=== PATIENT | female | born 1940 | race Caucasian/White ===

== ENCOUNTER 2018-05-19 15:50 | Inpatient (IN) | payer MEDICAID ==
[2018-05-19 16:33] LABS: ADD MAN DIFF? NO
[2018-05-19 16:39] LABS: BASOPHILS % 0.1 % (0.0-2.0); HEMATOCRIT 27.6 % (37.0-47.0); HEMOGLOBIN 9.6 g/dl (12.0-16.0); LYMPHOCYTES # 0.7 10^3/ul (0.8-2.9); MEAN CORPUSCULAR HEMOGLOBIN 28.9 pg (29.0-33.0); MEAN CORPUSCULAR HGB CONC 34.8 g/dl (32.0-37.0); MEAN CORPUSCULAR VOLUME 83.1 fl (82.0-101.0); MEAN PLATELET VOLUME 11.5 fl (7.4-10.4); MONOCYTES % 6.5 % (0.0-11.0); NEUTROPHIL # 12.8 10^3/ul (1.6-7.5); NEUTROPHILS % 87.9 % (39.0-77.0); PLATELET COUNT 237 10^3/UL (140-415); RED BLOOD COUNT 3.32 10^6/ul (4.20-5.40); RED CELL DISTRIBUTION WIDTH 13.1 % (11.5-14.5)
[2018-05-19 16:39] LABS: WHITE BLOOD COUNT 14.6 10^3/ul (4.8-10.8)
[2018-05-19 16:56] LABS: LACTIC ACID 1.6 mmol/L (0.5-2.0)
[2018-05-19 16:57] LABS: ALANINE AMINOTRANSFERASE 22 IU/L (13-69); ALBUMIN 3.8 g/dl (3.3-4.9); ALKALINE PHOSPHATASE 121 IU/L (42-121); ANION GAP 20 (8-16); ASPARTATE AMINO TRANSFERASE 23 IU/L (15-46); BILIRUBIN,INDIRECT 0.3 mg/dl (0-1.1); BILIRUBIN,TOTAL 0.3 mg/dl (0.2-1.3); BLOOD UREA NITROGEN 54 mg/dl (7-20); CALCIUM 8.5 mg/dl (8.4-10.2); CARBON DIOXIDE 19 mmol/L (21-31); CHLORIDE 95 mmol/L (97-110); CREATININE 2.02 mg/dl (0.44-1.00); GLUCOSE 363 mg/dl (70-220); SODIUM 129 mmol/L (135-144); TOTAL PROTEIN 7.6 g/dl (6.1-8.1)
[2018-05-19 16:58] LABS: LIPASE 52 U/L (23-300)
[2018-05-19] MEDS: SODIUM CHLORIDE 0.9% 1L BAG IV* (17:00)
[2018-05-19] MEDS: CEFEPIME 2GM/50 ML (PMX) 50 ML IVPB (17:05)
[2018-05-19] MEDS: ONDANSETRON 4 MG INJ IV (17:05)
[2018-05-19] MEDS: ACETAMINOPHEN 325 MG TAB PO (17:07)
[2018-05-19 17:12] LABS: ADD UMIC YES; UR ASCORBIC ACID NEGATIVE (NEGATIVE); UR BACTERIA MODERATE /HPF (NONE SEEN); UR BILIRUBIN (Dip) NEGATIVE (NEGATIVE); UR BLOOD (Dip) 3+ mg/dL (NEGATIVE); UR CLARITY CLOUDY (CLEAR); UR COLOR YELLOW (YELLOW); UR GLUCOSE (Dip) 2+ mg/dL (NEGATIVE); UR KETONES (Dip) NEGATIVE (NEGATIVE); UR LEUKOCYTE ESTERASE (Dip) 3+ Leu/ul (NEGATIVE); UR MUCUS FEW /HPF (NONE SEEN); UR NITRITE (Dip) NEGATIVE (NEGATIVE); UR NONSQUAMOUS EPITHELIAL CELL 1 /HPF (NONE SEEN); UR RBC 171 /HPF (0-5); UR SPECIFIC GRAVITY (Dip) 1.012 (1.003-1.030); UR SQUAMOUS EPITHELIAL CELL FEW /HPF (FEW); UR TOTAL PROTEIN (Dip) 3+ mg/dl (NEGATIVE); UR UROBILINOGEN (Dip) NEGATIVE (NEGATIVE); UR WBC > 182 /HPF (0-5)
[2018-05-19 17:13] LABS: TROPONIN-I 0.025 ng/ml (0.000-0.120)
[2018-05-19 17:14] LABS: INR 1.09; PROTIME 14.2 Sec (11.9-14.9); PT RATIO 1.1
[2018-05-19] MEDS: INSULIN ASPART [NOVOLOG] 3 ML PEN SC ×5 (18:00→23:47)
[2018-05-19] MEDS ORDERED: GLUCOSE GEL 15 GRAM TUBE PO ×2 (18:30)
[2018-05-19] MEDS ORDERED: NACL 0.9% 3 ML SYG IV (18:30)
[2018-05-19] MEDS ORDERED: GLUCOSE GEL 15 GRAM TUBE BUCCAL (18:30)
[2018-05-19] MEDS ORDERED: DEXTROSE 50% 50 ML SYRINGE IV (18:30)
[2018-05-19] MEDS ORDERED: GLUCAGON 1 MG INJ IM (18:30)
[2018-05-19] MEDS: HYDROCODONE/APAP (5/325) TAB PO (18:35)
[2018-05-19] MEDS: HEPARIN 5,000 UNIT/0.5 ML VIAL SC (22:35)
[2018-05-19] MEDS: INSULIN GLARGINE [LANTus] (100 UNITS/ML) SYG SC (22:36)
[2018-05-19] MEDS: SOD CHLORIDE 0.9% 1,000 ML IV (22:38)
[2018-05-19] MEDS: MEROPENEM 1 GM/50ML(PMX) 50 ML IVPB (23:38)
[2018-05-20] MEDS: ACCU-CHEK XX (02:00)
[2018-05-20] MEDS: INSULIN ASPART [NOVOLOG] 3 ML PEN SC ×8 (03:19→21:13)
[2018-05-20 05:48] LABS: ADD MAN DIFF? NO
[2018-05-20 05:49] LABS: WHITE BLOOD COUNT 18.8 10^3/ul (4.8-10.8)
[2018-05-20 05:49] LABS: ABNORMAL IP MESSAGE 1; BASOPHILS % 0.2 % (0.0-2.0); EOSINOPHILS % 0.2 % (0.0-7.0); HEMATOCRIT 24.7 % (37.0-47.0); HEMOGLOBIN 8.7 g/dl (12.0-16.0); LYMPHOCYTES # 2.1 10^3/ul (0.8-2.9); LYMPHOCYTES % 10.9 % (15.0-51.0); MEAN CORPUSCULAR HEMOGLOBIN 29.2 pg (29.0-33.0); MEAN CORPUSCULAR HGB CONC 35.2 g/dl (32.0-37.0); MEAN CORPUSCULAR VOLUME 82.9 fl (82.0-101.0); MEAN PLATELET VOLUME 11.6 fl (7.4-10.4); MONOCYTE # 1.6 10^3/ul (0.3-0.9); MONOCYTES % 8.3 % (0.0-11.0); NEUTROPHIL # 14.9 10^3/ul (1.6-7.5); NEUTROPHILS % 79.3 % (39.0-77.0); PLATELET COUNT 219 10^3/UL (140-415); RED BLOOD COUNT 2.98 10^6/ul (4.20-5.40)
[2018-05-20 06:04] LABS: HEMOGLOBIN A1C 9.2 % (0-5.9)
[2018-05-20 06:14] LABS: IRON 27 ug/dl (35-150)
[2018-05-20 06:16] LABS: ALANINE AMINOTRANSFERASE 19 IU/L (13-69); ALBUMIN 3.2 g/dl (3.3-4.9); ALBUMIN/GLOBULIN RATIO 0.91; ALKALINE PHOSPHATASE 92 IU/L (42-121); ANION GAP 13 (8-16); ASPARTATE AMINO TRANSFERASE 21 IU/L (15-46); BILIRUBIN,INDIRECT 0.1 mg/dl (0-1.1); BILIRUBIN,TOTAL 0.1 mg/dl (0.2-1.3); BLOOD UREA NITROGEN 45 mg/dl (7-20); CALCIUM 8.3 mg/dl (8.4-10.2); CARBON DIOXIDE 19 mmol/L (21-31); CHLORIDE 105 mmol/L (97-110); CREATININE 1.82 mg/dl (0.44-1.00); GLUCOSE 160 mg/dl (70-220); POTASSIUM 4.2 mmol/L (3.5-5.1); SODIUM 133 mmol/L (135-144); TOTAL PROTEIN 6.7 g/dl (6.1-8.1)
[2018-05-20 06:18] LABS: POSITIVE DIFF @See below
[2018-05-20 06:23] LABS: % IRON SATURATION 12 % SAT (22-52); TOTAL IRON BINDING CAPACITY 225 ug/dl (241-421)
[2018-05-20] MEDS: SOD CHLORIDE 0.9% 1,000 ML IV ×2 (07:31→15:21)
[2018-05-20] MEDS: MEROPENEM 1 GM/50ML(PMX) 50 ML IVPB ×2 (08:44→21:00)
[2018-05-20] MEDS: HEPARIN 5,000 UNIT/0.5 ML VIAL SC ×2 (08:44→21:13)
[2018-05-20] MEDS: ACETAMINOPHEN 325 MG TAB PO (15:19)
[2018-05-20] MEDS: INSULIN GLARGINE [LANTus] (100 UNITS/ML) SYG SC (21:11)
[2018-05-21] MEDS: ACCU-CHEK XX (02:49)
[2018-05-21] MEDS: SOD CHLORIDE 0.9% 1,000 ML IV (06:08)
[2018-05-21 06:12] LABS: ADD MAN DIFF? NO
[2018-05-21 06:18] LABS: ABNORMAL IP MESSAGE 1; BASOPHILS % 0.1 % (0.0-2.0); EOSINOPHILS # 0.1 10^3/ul (0.0-0.5); EOSINOPHILS % 0.9 % (0.0-7.0); HEMATOCRIT 24.4 % (37.0-47.0); HEMOGLOBIN 8.4 g/dl (12.0-16.0); LYMPHOCYTES # 2.3 10^3/ul (0.8-2.9); LYMPHOCYTES % 16.3 % (15.0-51.0); MEAN CORPUSCULAR HEMOGLOBIN 28.7 pg (29.0-33.0); MEAN CORPUSCULAR HGB CONC 34.4 g/dl (32.0-37.0); MEAN CORPUSCULAR VOLUME 83.3 fl (82.0-101.0); MEAN PLATELET VOLUME 11.4 fl (7.4-10.4); MONOCYTES % 13.9 % (0.0-11.0); NEUTROPHIL # 9.5 10^3/ul (1.6-7.5); NEUTROPHILS % 68.4 % (39.0-77.0); PLATELET COUNT 235 10^3/UL (140-415); RED BLOOD COUNT 2.93 10^6/ul (4.20-5.40); RED CELL DISTRIBUTION WIDTH 13.2 % (11.5-14.5)
[2018-05-21 06:34] LABS: POSITIVE DIFF @See below
[2018-05-21 07:00] LABS: ALANINE AMINOTRANSFERASE 22 IU/L (13-69); ALBUMIN 2.9 g/dl (3.3-4.9); ALBUMIN/GLOBULIN RATIO 0.87; ALKALINE PHOSPHATASE 85 IU/L (42-121); ANION GAP 13 (8-16); ASPARTATE AMINO TRANSFERASE 24 IU/L (15-46); BILIRUBIN,INDIRECT 0.1 mg/dl (0-1.1); BILIRUBIN,TOTAL 0.1 mg/dl (0.2-1.3); BLOOD UREA NITROGEN 36 mg/dl (7-20); CALCIUM 7.7 mg/dl (8.4-10.2); CARBON DIOXIDE 17 mmol/L (21-31); CHLORIDE 108 mmol/L (97-110); CREATININE 1.51 mg/dl (0.44-1.00); GLUCOSE 118 mg/dl (70-220); POTASSIUM 3.9 mmol/L (3.5-5.1); SODIUM 134 mmol/L (135-144); TOTAL PROTEIN 6.2 g/dl (6.1-8.1)
[2018-05-21] MEDS: INSULIN ASPART [NOVOLOG] 3 ML PEN SC ×8 (07:59→21:00)
[2018-05-21] MEDS: MEROPENEM 1 GM/50ML(PMX) 50 ML IVPB (08:32)
[2018-05-21] MEDS: HEPARIN 5,000 UNIT/0.5 ML VIAL SC ×2 (08:32→20:34)
[2018-05-21] MEDS: ERTAPENEM SODIUM 1 GM in SOD CHLORIDE 0.9% 100 ML IVPB (15:11)
[2018-05-21] MEDS: INSULIN GLARGINE [LANTus] (100 UNITS/ML) SYG SC (21:19)
[2018-05-22] MEDS: SOD CHLORIDE 0.9% 1,000 ML IV ×3 (01:29→22:41)
[2018-05-22] MEDS: ACCU-CHEK XX (02:00)
[2018-05-22 05:39] LABS: ADD MAN DIFF? NO
[2018-05-22 05:42] LABS: BASOPHILS % 0.4 % (0.0-2.0); EOSINOPHILS # 0.1 10^3/ul (0.0-0.5); HEMATOCRIT 25.8 % (37.0-47.0); HEMOGLOBIN 8.8 g/dl (12.0-16.0); LYMPHOCYTES # 1.9 10^3/ul (0.8-2.9); LYMPHOCYTES % 17.4 % (15.0-51.0); MEAN CORPUSCULAR HEMOGLOBIN 28.3 pg (29.0-33.0); MEAN CORPUSCULAR HGB CONC 34.1 g/dl (32.0-37.0); MEAN PLATELET VOLUME 11.4 fl (7.4-10.4); MONOCYTE # 1.4 10^3/ul (0.3-0.9); MONOCYTES % 13.1 % (0.0-11.0); NEUTROPHIL # 7.2 10^3/ul (1.6-7.5); NEUTROPHILS % 67.5 % (39.0-77.0); PLATELET COUNT 248 10^3/UL (140-415); RED BLOOD COUNT 3.11 10^6/ul (4.20-5.40); RED CELL DISTRIBUTION WIDTH 13.2 % (11.5-14.5)
[2018-05-22 05:42] LABS: WHITE BLOOD COUNT 10.7 10^3/ul (4.8-10.8)
[2018-05-22 06:26] LABS: ANION GAP 12 (8-16); BLOOD UREA NITROGEN 28 mg/dl (7-20); CALCIUM 8.2 mg/dl (8.4-10.2); CARBON DIOXIDE 20 mmol/L (21-31); CHLORIDE 106 mmol/L (97-110); CREATININE 1.27 mg/dl (0.44-1.00); GLUCOSE 87 mg/dl (70-220); MAGNESIUM 1.5 mg/dl (1.7-2.5); PHOSPHORUS 2.9 mg/dl (2.5-4.9); POTASSIUM 3.6 mmol/L (3.5-5.1); SODIUM 134 mmol/L (135-144)
[2018-05-22] MEDS: INSULIN ASPART [NOVOLOG] 3 ML PEN SC ×7 (08:00→21:00)
[2018-05-22] MEDS: HEPARIN 5,000 UNIT/0.5 ML VIAL SC ×2 (08:40→20:45)
[2018-05-22] MEDS: MAGNESIUM SULFATE 3 GM in DEXTROSE 5% 100 ML IVPB (12:51)
[2018-05-22] MEDS: ERTAPENEM SODIUM 1 GM in SOD CHLORIDE 0.9% 100 ML IVPB (18:46)
[2018-05-22] MEDS: INSULIN GLARGINE [LANTus] (100 UNITS/ML) SYG SC (20:46)
[2018-05-23] MEDS: ACCU-CHEK XX (02:00)
[2018-05-23] MEDS: ACETAMINOPHEN 325 MG TAB PO (02:36)
[2018-05-23] MEDS: METOPROLOL 25 MG TAB PO ×3 (02:39→20:43)
[2018-05-23 06:15] LABS: ADD MAN DIFF? NO
[2018-05-23 06:30] LABS: WHITE BLOOD COUNT 8.4 10^3/ul (4.8-10.8)
[2018-05-23 06:30] LABS: BASOPHILS % 0.4 % (0.0-2.0); EOSINOPHILS # 0.1 10^3/ul (0.0-0.5); EOSINOPHILS % 1.5 % (0.0-7.0); HEMATOCRIT 25.3 % (37.0-47.0); HEMOGLOBIN 8.7 g/dl (12.0-16.0); LYMPHOCYTES # 2.1 10^3/ul (0.8-2.9); LYMPHOCYTES % 25.5 % (15.0-51.0); MEAN CORPUSCULAR HEMOGLOBIN 28.4 pg (29.0-33.0); MEAN CORPUSCULAR HGB CONC 34.4 g/dl (32.0-37.0); MEAN CORPUSCULAR VOLUME 82.7 fl (82.0-101.0); MONOCYTE # 1.3 10^3/ul (0.3-0.9); NEUTROPHIL # 4.7 10^3/ul (1.6-7.5); NEUTROPHILS % 56.1 % (39.0-77.0); PLATELET COUNT 281 10^3/UL (140-415); RED BLOOD COUNT 3.06 10^6/ul (4.20-5.40)
[2018-05-23 07:17] LABS: ANION GAP 12 (8-16); BLOOD UREA NITROGEN 28 mg/dl (7-20); CALCIUM 8.4 mg/dl (8.4-10.2); CARBON DIOXIDE 22 mmol/L (21-31); CHLORIDE 107 mmol/L (97-110); CREATININE 1.51 mg/dl (0.44-1.00); GLUCOSE 93 mg/dl (70-220); MAGNESIUM 2.5 mg/dl (1.7-2.5); POTASSIUM 3.9 mmol/L (3.5-5.1); SODIUM 137 mmol/L (135-144)
[2018-05-23] MEDS: INSULIN ASPART [NOVOLOG] 3 ML PEN SC ×7 (08:00→20:48)
[2018-05-23] MEDS: HEPARIN 5,000 UNIT/0.5 ML VIAL SC ×2 (08:17→20:45)
[2018-05-23] MEDS: SOD CHLORIDE 0.9% 1,000 ML IV ×2 (12:15→14:36)
[2018-05-23] MEDS: ERTAPENEM SODIUM 1 GM in SOD CHLORIDE 0.9% 100 ML IVPB (14:03)
[2018-05-23] MEDS: INSULIN GLARGINE [LANTus] (100 UNITS/ML) SYG SC (20:47)
[2018-05-24] MEDS: ACCU-CHEK XX (02:00)
[2018-05-24] MEDS: SOD CHLORIDE 0.9% 1,000 ML IV ×2 (03:19→17:39)
[2018-05-24 06:29] LABS: HEMATOCRIT 24.7 % (37.0-47.0); HEMOGLOBIN 8.5 g/dl (12.0-16.0); MEAN CORPUSCULAR HEMOGLOBIN 28.8 pg (29.0-33.0); MEAN CORPUSCULAR HGB CONC 34.4 g/dl (32.0-37.0); MEAN CORPUSCULAR VOLUME 83.7 fl (82.0-101.0); PLATELET COUNT 322 10^3/UL (140-415); RED BLOOD COUNT 2.95 10^6/ul (4.20-5.40); RED CELL DISTRIBUTION WIDTH 13.2 % (11.5-14.5)
[2018-05-24 06:29] LABS: WHITE BLOOD COUNT 8.4 10^3/ul (4.8-10.8)
[2018-05-24 06:43] LABS: ADD MAN DIFF? YES; POSITIVE DIFF @See below
[2018-05-24 06:54] LABS: ANION GAP 12 (8-16); BLOOD UREA NITROGEN 23 mg/dl (7-20); CALCIUM 8.1 mg/dl (8.4-10.2); CARBON DIOXIDE 21 mmol/L (21-31); CHLORIDE 109 mmol/L (97-110); CREATININE 1.19 mg/dl (0.44-1.00); GLUCOSE 84 mg/dl (70-220); POTASSIUM 3.7 mmol/L (3.5-5.1); SODIUM 138 mmol/L (135-144)
[2018-05-24 07:09] LABS: ANISOCYTOSIS 1+ (0-0); BASOPHIL #M 0.1 10^3/ul (0.0-0.0); BASOPHILS % (M) 2 % (0-2); EOSINOPHILS % (M) 3 % (0-7); LYMPHOCYTES #M 3.1 10^3/ul (0.8-2.9); LYMPHOCYTES % (M) 37 % (15-51); MONOCYTES % (M) 13 % (0-11); PLATELET ESTIMATE NORMAL; POLYCHROMASIA 1+ (0-0); REACTIVE LYMPHOCYTES #M 0.1 10^3/ul (0.0-0.0); REACTIVE LYMPHOCYTES% (M) 2 % (0-0); SEGMENTED NEUTROPHILS (M) % 43 % (39-77); SMUDGE%M 9 % (0-0)
[2018-05-24] MEDS: INSULIN ASPART [NOVOLOG] 3 ML PEN SC ×7 (08:00→21:00)
[2018-05-24] MEDS: HEPARIN 5,000 UNIT/0.5 ML VIAL SC ×2 (08:38→20:53)
[2018-05-24] MEDS: METOPROLOL 25 MG TAB PO ×2 (08:39→20:50)
[2018-05-24] MEDS: ERTAPENEM SODIUM 1 GM in SOD CHLORIDE 0.9% 100 ML IVPB (14:34)
[2018-05-24] MEDS: INSULIN GLARGINE [LANTus] (100 UNITS/ML) SYG SC (20:54)
[2018-05-25] MEDS: ACCU-CHEK XX (02:00)
[2018-05-25] MEDS: SOD CHLORIDE 0.9% 1,000 ML IV ×2 (06:08→20:44)
[2018-05-25] MEDS: INSULIN ASPART [NOVOLOG] 3 ML PEN SC ×7 (08:00→20:38)
[2018-05-25] MEDS: METOPROLOL 25 MG TAB PO ×2 (08:09→20:30)
[2018-05-25] MEDS: HEPARIN 5,000 UNIT/0.5 ML VIAL SC ×2 (08:09→20:38)
[2018-05-25] MEDS: ERTAPENEM SODIUM 1 GM in SOD CHLORIDE 0.9% 100 ML IVPB (16:31)
[2018-05-25] MEDS: INSULIN GLARGINE [LANTus] (100 UNITS/ML) SYG SC (20:39)
[2018-05-26] MEDS: ACCU-CHEK XX (02:00)
[2018-05-26] MEDS: INSULIN ASPART [NOVOLOG] 3 ML PEN SC ×8 (07:54→20:31)
[2018-05-26] MEDS: METOPROLOL 25 MG TAB PO ×2 (08:19→20:30)
[2018-05-26] MEDS: HEPARIN 5,000 UNIT/0.5 ML VIAL SC ×2 (08:21→21:36)
[2018-05-26] MEDS: SOD CHLORIDE 0.9% 1,000 ML IV ×2 (10:14→21:37)
[2018-05-26] MEDS: DOCUSATE SODIUM 100 MG CAP PO ×2 (12:20→20:30)
[2018-05-26] MEDS: SENNA TAB PO ×2 (12:20→20:31)
[2018-05-26] MEDS: ERTAPENEM SODIUM 1 GM in SOD CHLORIDE 0.9% 100 ML IVPB (13:47)
[2018-05-26] MEDS: LISINOPRIL 10 MG TAB PO (14:32)
[2018-05-26] MEDS: hydrALAzine 20 MG INJ IV (14:33)
[2018-05-26 18:14] LABS: ADD MAN DIFF? NO
[2018-05-26 18:16] LABS: BASOPHILS % 0.4 % (0.0-2.0); EOSINOPHILS # 0.1 10^3/ul (0.0-0.5); EOSINOPHILS % 0.8 % (0.0-7.0); HEMATOCRIT 25.1 % (37.0-47.0); HEMOGLOBIN 8.5 g/dl (12.0-16.0); LYMPHOCYTES # 1.8 10^3/ul (0.8-2.9); LYMPHOCYTES % 22.3 % (15.0-51.0); MEAN CORPUSCULAR HEMOGLOBIN 28.6 pg (29.0-33.0); MEAN CORPUSCULAR HGB CONC 33.9 g/dl (32.0-37.0); MEAN CORPUSCULAR VOLUME 84.5 fl (82.0-101.0); MEAN PLATELET VOLUME 10.4 fl (7.4-10.4); MONOCYTE # 0.6 10^3/ul (0.3-0.9); MONOCYTES % 7.1 % (0.0-11.0); NEUTROPHIL # 5.4 10^3/ul (1.6-7.5); NEUTROPHILS % 68.4 % (39.0-77.0); PLATELET COUNT 442 10^3/UL (140-415); RED BLOOD COUNT 2.97 10^6/ul (4.20-5.40); RED CELL DISTRIBUTION WIDTH 13.3 % (11.5-14.5)
[2018-05-26 18:16] LABS: WHITE BLOOD COUNT 7.8 10^3/ul (4.8-10.8)
[2018-05-26 18:24] LABS: HEMOGLOBIN A1C 9.4 % (0-5.9)
[2018-05-26 18:32] LABS: INR 0.93; PROTIME 12.5 Sec (11.9-14.9)
[2018-05-26 18:33] LABS: PARTIAL THROMBOPLASTIN TIME 32.6 Sec (25.0-35.0)
[2018-05-26 18:35] LABS: ANION GAP 18 (8-16); BLOOD UREA NITROGEN 19 mg/dl (7-20); CALCIUM 8.2 mg/dl (8.4-10.2); CARBON DIOXIDE 20 mmol/L (21-31); CHLORIDE 108 mmol/L (97-110); CHOL/HDL RATIO 7.6 RATIO; CHOLESTEROL 184 mg/dl (100-200); CREATINE KINASE 66 IU/L (23-200); CREATININE 1.06 mg/dl (0.44-1.00); GLUCOSE 154 mg/dl (70-220); HDL CHOLESTEROL 24 mg/dl (33-92); LDL CHOLESTEROL,CALCULATED 103 mg/dl; POTASSIUM 3.5 mmol/L (3.5-5.1); SODIUM 142 mmol/L (135-144); TRIGLYCERIDES 285 mg/dl (0-149)
[2018-05-26 18:38] LABS: LACTIC ACID 3.3 mmol/L (0.5-2.0)
[2018-05-26 18:46] LABS: CK-MB 1.29 ng/ml (0.0-2.4); TROPONIN-I < 0.012 ng/ml (0.000-0.120)
[2018-05-26] MEDS: ASPIRIN 300 MG SUPP PR (18:52)
[2018-05-26] MEDS: INSULIN GLARGINE [LANTus] (100 UNITS/ML) SYG SC (20:28)
[2018-05-27] MEDS: ACCU-CHEK XX (02:00)
[2018-05-27 05:45] LABS: ADD MAN DIFF? NO
[2018-05-27 05:58] LABS: BASOPHIL # 0.1 10^3/ul (0.0-0.1); BASOPHILS % 0.6 % (0.0-2.0); EOSINOPHILS # 0.2 10^3/ul (0.0-0.5); EOSINOPHILS % 1.9 % (0.0-7.0); HEMATOCRIT 23.6 % (37.0-47.0); LYMPHOCYTES % 33.5 % (15.0-51.0); MEAN CORPUSCULAR HEMOGLOBIN 28.7 pg (29.0-33.0); MEAN CORPUSCULAR HGB CONC 33.9 g/dl (32.0-37.0); MEAN CORPUSCULAR VOLUME 84.6 fl (82.0-101.0); MEAN PLATELET VOLUME 10.6 fl (7.4-10.4); MONOCYTE # 0.8 10^3/ul (0.3-0.9); MONOCYTES % 9.2 % (0.0-11.0); NEUTROPHIL # 4.8 10^3/ul (1.6-7.5); NEUTROPHILS % 54.3 % (39.0-77.0); PLATELET COUNT 442 10^3/UL (140-415); RED BLOOD COUNT 2.79 10^6/ul (4.20-5.40); RED CELL DISTRIBUTION WIDTH 13.3 % (11.5-14.5)
[2018-05-27 05:58] LABS: WHITE BLOOD COUNT 8.8 10^3/ul (4.8-10.8)
[2018-05-27 06:15] LABS: LACTIC ACID 0.7 mmol/L (0.5-2.0)
[2018-05-27 06:17] LABS: ALANINE AMINOTRANSFERASE 26 IU/L (13-69); ALBUMIN 2.7 g/dl (3.3-4.9); ALBUMIN/GLOBULIN RATIO 0.87; ALKALINE PHOSPHATASE 70 IU/L (42-121); ANION GAP 14 (8-16); ASPARTATE AMINO TRANSFERASE 23 IU/L (15-46); BILIRUBIN,INDIRECT 0.1 mg/dl (0-1.1); BILIRUBIN,TOTAL 0.1 mg/dl (0.2-1.3); BLOOD UREA NITROGEN 19 mg/dl (7-20); CALCIUM 8.1 mg/dl (8.4-10.2); CARBON DIOXIDE 23 mmol/L (21-31); CHLORIDE 112 mmol/L (97-110); CREATININE 1.05 mg/dl (0.44-1.00); GLUCOSE 66 mg/dl (70-220); POTASSIUM 3.8 mmol/L (3.5-5.1); SODIUM 145 mmol/L (135-144); TOTAL PROTEIN 5.8 g/dl (6.1-8.1)
[2018-05-27] MEDS: INSULIN ASPART [NOVOLOG] 3 ML PEN SC ×7 (07:35→21:00)
[2018-05-27] MEDS: DOCUSATE SODIUM 100 MG CAP PO ×2 (08:46→21:17)
[2018-05-27] MEDS: LISINOPRIL 10 MG TAB PO (08:47)
[2018-05-27] MEDS: METOPROLOL 25 MG TAB PO ×2 (08:47→21:18)
[2018-05-27] MEDS: SENNA TAB PO ×2 (08:47→21:17)
[2018-05-27] MEDS: HEPARIN 5,000 UNIT/0.5 ML VIAL SC ×2 (08:48→21:30)
[2018-05-27] MEDS: SOD CHLORIDE 0.9% 1,000 ML IV ×2 (11:08→21:37)
[2018-05-27] MEDS: ERTAPENEM SODIUM 1 GM in SOD CHLORIDE 0.9% 100 ML IVPB (14:14)
[2018-05-27] MEDS: hydrALAzine 20 MG INJ IV (20:09)
[2018-05-27] MEDS: INSULIN GLARGINE [LANTus] (100 UNITS/ML) SYG SC (20:11)
[2018-05-28] MEDS: ACCU-CHEK XX (02:00)
[2018-05-28 06:37] LABS: ANION GAP 17 (8-16); BLOOD UREA NITROGEN 17 mg/dl (7-20); CALCIUM 8.4 mg/dl (8.4-10.2); CARBON DIOXIDE 22 mmol/L (21-31); CHLORIDE 113 mmol/L (97-110); CREATININE 1.17 mg/dl (0.44-1.00); GLUCOSE 84 mg/dl (70-220); POTASSIUM 3.8 mmol/L (3.5-5.1); SODIUM 148 mmol/L (135-144)
[2018-05-28] MEDS: INSULIN ASPART [NOVOLOG] 3 ML PEN SC ×7 (07:38→21:00)
[2018-05-28] MEDS: SENNA TAB PO ×2 (08:39→21:00)
[2018-05-28] MEDS: LISINOPRIL 10 MG TAB PO (08:39)
[2018-05-28] MEDS: DOCUSATE SODIUM 100 MG CAP PO ×2 (08:39→21:00)
[2018-05-28] MEDS: METOPROLOL 25 MG TAB PO ×2 (08:40→21:40)
[2018-05-28] MEDS: HEPARIN 5,000 UNIT/0.5 ML VIAL SC ×2 (08:56→21:36)
[2018-05-28] MEDS: ERTAPENEM SODIUM 1 GM in SOD CHLORIDE 0.9% 100 ML IVPB (15:09)
[2018-05-28] MEDS: SOD CHLORIDE 0.9% 1,000 ML IV ×2 (15:50→21:33)
[2018-05-28 18:23] LABS: AADO2 Arterial 94.9 mmHg (7.0-24.0); Allen Test ACCEPTAB; Arterial Base Excess -7.4 mmol/L (-3.0-3); Arterial COHb 0.3 % (0.0-3.0); Arterial Fraction of Oxyhgb 97.4 % (93.0-99.0); Arterial HCO3 17.8 mmol/L (22.0-26.0); Arterial MetHb 0.3 % (0.0-1.5); Arterial Total Hemglobin 9.7 g/dl (12.0-18.0); Arterial pCO2 34.7 mmhg (35-45); MODE NASAL CANNULA; Site LB
[2018-05-28] MEDS: ASPIRIN 81 MG TAB PO (21:51)
[2018-05-28] MEDS: INSULIN GLARGINE [LANTus] (100 UNITS/ML) SYG SC (21:52)
[2018-05-28] MEDS: CLOPIDOGREL 75 MG TAB PO (22:02)
[2018-05-29] MEDS: ACCU-CHEK XX (02:00)
[2018-05-29] MEDS: hydrALAzine 20 MG INJ IV (03:08)
[2018-05-29 04:49] LABS: ADD MAN DIFF? NO
[2018-05-29 04:51] LABS: BASOPHILS % 0.5 % (0.0-2.0); EOSINOPHILS # 0.1 10^3/ul (0.0-0.5); EOSINOPHILS % 0.9 % (0.0-7.0); HEMATOCRIT 23.1 % (37.0-47.0); HEMOGLOBIN 7.6 g/dl (12.0-16.0); LYMPHOCYTES # 2.1 10^3/ul (0.8-2.9); LYMPHOCYTES % 24.3 % (15.0-51.0); MEAN CORPUSCULAR HEMOGLOBIN 27.8 pg (29.0-33.0); MEAN CORPUSCULAR HGB CONC 32.9 g/dl (32.0-37.0); MEAN CORPUSCULAR VOLUME 84.6 fl (82.0-101.0); MEAN PLATELET VOLUME 10.8 fl (7.4-10.4); MONOCYTE # 0.7 10^3/ul (0.3-0.9); MONOCYTES % 8.1 % (0.0-11.0); NEUTROPHIL # 5.8 10^3/ul (1.6-7.5); NEUTROPHILS % 65.7 % (39.0-77.0); PLATELET COUNT 447 10^3/UL (140-415); RED BLOOD COUNT 2.73 10^6/ul (4.20-5.40); RED CELL DISTRIBUTION WIDTH 13.9 % (11.5-14.5)
[2018-05-29 04:51] LABS: WHITE BLOOD COUNT 8.8 10^3/ul (4.8-10.8)
[2018-05-29 05:22] LABS: ALBUMIN 3.1 g/dl (3.3-4.9); ANION GAP 11 (8-16); BLOOD UREA NITROGEN 15 mg/dl (7-20); CALCIUM 8.4 mg/dl (8.4-10.2); CARBON DIOXIDE 25 mmol/L (21-31); CHLORIDE 110 mmol/L (97-110); CREATININE 1.19 mg/dl (0.44-1.00); GLUCOSE 84 mg/dl (70-220); MAGNESIUM 1.3 mg/dl (1.7-2.5); PHOSPHORUS 4.1 mg/dl (2.5-4.9); POTASSIUM 3.7 mmol/L (3.5-5.1); SODIUM 142 mmol/L (135-144)
[2018-05-29] MEDS: MAGNESIUM SULFATE 3 GM in DEXTROSE 5% 100 ML IVPB (06:50)
[2018-05-29] MEDS: POTASSIUM CHLORIDE 100 ML IVPB ×2 (06:52→08:01)
[2018-05-29] MEDS: INSULIN ASPART [NOVOLOG] 3 ML PEN SC ×7 (07:35→20:48)
[2018-05-29] MEDS: DOCUSATE SODIUM 100 MG CAP PO ×2 (09:00→20:48)
[2018-05-29] MEDS: SENNA TAB PO ×2 (09:00→20:48)
[2018-05-29] MEDS: CLOPIDOGREL 75 MG TAB PO (09:33)
[2018-05-29] MEDS: ASPIRIN 81 MG TAB PO (09:33)
[2018-05-29] MEDS: LISINOPRIL 10 MG TAB PO (09:34)
[2018-05-29] MEDS: METOPROLOL 25 MG TAB PO ×2 (09:34→20:35)
[2018-05-29] MEDS: HEPARIN 5,000 UNIT/0.5 ML VIAL SC ×2 (09:40→20:32)
[2018-05-29] MEDS: ERTAPENEM SODIUM 1 GM in SOD CHLORIDE 0.9% 100 ML IVPB (13:27)
[2018-05-29] MEDS: SOD CHLORIDE 0.9% 1,000 ML IV (19:12)
[2018-05-29] MEDS: INSULIN GLARGINE [LANTus] (100 UNITS/ML) SYG SC (20:33)
[2018-05-29] MEDS: QUETIAPINE 25 MG TAB PO (20:35)
[2018-05-29] MEDS: HYDROCODONE/APAP (5/325) TAB PO (23:58)
[2018-05-30] MEDS: hydrALAzine 20 MG INJ IV ×3 (01:21→18:31)
[2018-05-30] MEDS: DEXTROSE 50% 50 ML SYRINGE IV ×3 (02:05→12:52)
[2018-05-30 05:00] LABS: ADD MAN DIFF? NO
[2018-05-30 05:03] LABS: WHITE BLOOD COUNT 10.7 10^3/ul (4.8-10.8)
[2018-05-30 05:03] LABS: BASOPHILS % 0.3 % (0.0-2.0); EOSINOPHILS # 0.2 10^3/ul (0.0-0.5); EOSINOPHILS % 2.1 % (0.0-7.0); HEMOGLOBIN 7.3 g/dl (12.0-16.0); LYMPHOCYTES # 3.6 10^3/ul (0.8-2.9); LYMPHOCYTES % 33.2 % (15.0-51.0); MEAN CORPUSCULAR HEMOGLOBIN 27.8 pg (29.0-33.0); MEAN CORPUSCULAR HGB CONC 31.7 g/dl (32.0-37.0); MEAN CORPUSCULAR VOLUME 87.5 fl (82.0-101.0); MEAN PLATELET VOLUME 10.8 fl (7.4-10.4); MONOCYTE # 0.9 10^3/ul (0.3-0.9); MONOCYTES % 8.5 % (0.0-11.0); NEUTROPHIL # 5.9 10^3/ul (1.6-7.5); NEUTROPHILS % 55.4 % (39.0-77.0); PLATELET COUNT 450 10^3/UL (140-415); RED BLOOD COUNT 2.63 10^6/ul (4.20-5.40); RED CELL DISTRIBUTION WIDTH 14.1 % (11.5-14.5)
[2018-05-30 05:25] LABS: ALBUMIN 3.2 g/dl (3.3-4.9); ANION GAP 12 (8-16); BLOOD UREA NITROGEN 15 mg/dl (7-20); CALCIUM 8.2 mg/dl (8.4-10.2); CARBON DIOXIDE 21 mmol/L (21-31); CHLORIDE 113 mmol/L (97-110); CREATININE 1.23 mg/dl (0.44-1.00); GLUCOSE 77 mg/dl (70-220); MAGNESIUM 2.1 mg/dl (1.7-2.5); PHOSPHORUS 3.8 mg/dl (2.5-4.9); POTASSIUM 4.1 mmol/L (3.5-5.1); SODIUM 142 mmol/L (135-144)
[2018-05-30] MEDS: LORAZEPAM 2 MG INJ IV ×3 (06:55→16:56)
[2018-05-30] MEDS: SOD CHLORIDE 0.9% 1,000 ML IV ×2 (07:01→20:54)
[2018-05-30] MEDS: INSULIN ASPART [NOVOLOG] 3 ML PEN SC ×7 (07:35→20:56)
[2018-05-30] MEDS: ASPIRIN 81 MG TAB PO (08:11)
[2018-05-30] MEDS: CLOPIDOGREL 75 MG TAB PO (08:11)
[2018-05-30] MEDS: LISINOPRIL 10 MG TAB PO (08:12)
[2018-05-30] MEDS: METOPROLOL 25 MG TAB PO ×2 (08:12→20:56)
[2018-05-30] MEDS: DOCUSATE SODIUM 100 MG CAP PO ×2 (09:00→20:55)
[2018-05-30] MEDS: SENNA TAB PO ×2 (09:00→20:55)
[2018-05-30] MEDS: HEPARIN 5,000 UNIT/0.5 ML VIAL SC ×2 (09:06→21:00)
[2018-05-30] MEDS: ERTAPENEM SODIUM 1 GM in SOD CHLORIDE 0.9% 100 ML IVPB (13:25)
[2018-05-30] MEDS: INSULIN GLARGINE [LANTus] (100 UNITS/ML) SYG SC (20:00)
[2018-05-30] MEDS: QUETIAPINE 25 MG TAB PO (20:55)
[2018-05-31 06:34] LABS: ADD MAN DIFF? NO
[2018-05-31 06:37] LABS: WHITE BLOOD COUNT 7.3 10^3/ul (4.8-10.8)
[2018-05-31 06:37] LABS: BASOPHIL # 0.1 10^3/ul (0.0-0.1); BASOPHILS % 0.7 % (0.0-2.0); EOSINOPHILS # 0.2 10^3/ul (0.0-0.5); HEMATOCRIT 22.5 % (37.0-47.0); HEMOGLOBIN 7.2 g/dl (12.0-16.0); LYMPHOCYTES # 2.6 10^3/ul (0.8-2.9); LYMPHOCYTES % 35.9 % (15.0-51.0); MEAN CORPUSCULAR VOLUME 87.5 fl (82.0-101.0); MEAN PLATELET VOLUME 10.6 fl (7.4-10.4); MONOCYTE # 0.8 10^3/ul (0.3-0.9); MONOCYTES % 11.5 % (0.0-11.0); NEUTROPHIL # 3.6 10^3/ul (1.6-7.5); NEUTROPHILS % 48.6 % (39.0-77.0); PLATELET COUNT 444 10^3/UL (140-415); RED BLOOD COUNT 2.57 10^6/ul (4.20-5.40); RED CELL DISTRIBUTION WIDTH 14.6 % (11.5-14.5)
[2018-05-31 06:58] LABS: ALBUMIN 2.6 g/dl (3.3-4.9); ANION GAP 13 (8-16); BLOOD UREA NITROGEN 12 mg/dl (7-20); CALCIUM 8.2 mg/dl (8.4-10.2); CARBON DIOXIDE 21 mmol/L (21-31); CHLORIDE 114 mmol/L (97-110); CREATININE 1.21 mg/dl (0.44-1.00); GLUCOSE 67 mg/dl (70-220); MAGNESIUM 1.7 mg/dl (1.7-2.5); PHOSPHORUS 5.1 mg/dl (2.5-4.9); POTASSIUM 4.6 mmol/L (3.5-5.1); SODIUM 143 mmol/L (135-144)
[2018-05-31] MEDS: hydrALAzine 20 MG INJ IV ×2 (07:07→19:36)
[2018-05-31] MEDS: INSULIN ASPART [NOVOLOG] 3 ML PEN SC ×7 (07:55→20:49)
[2018-05-31] MEDS: LORAZEPAM 2 MG INJ IV ×2 (09:33→20:44)
[2018-05-31] MEDS: SENNA TAB PO ×2 (09:33→20:44)
[2018-05-31] MEDS: ASPIRIN 81 MG TAB PO (09:34)
[2018-05-31] MEDS: LISINOPRIL 10 MG TAB PO (09:34)
[2018-05-31] MEDS: DOCUSATE SODIUM 100 MG CAP PO ×2 (09:34→20:44)
[2018-05-31] MEDS: SOD CHLORIDE 0.9% 1,000 ML IV ×2 (09:34→23:52)
[2018-05-31] MEDS: METOPROLOL 25 MG TAB PO ×2 (09:34→20:48)
[2018-05-31] MEDS: CLOPIDOGREL 75 MG TAB PO (09:34)
[2018-05-31] MEDS: HEPARIN 5,000 UNIT/0.5 ML VIAL SC ×2 (10:03→20:49)
[2018-05-31 12:16] LABS: HEMATOCRIT 23.5 % (37.0-47.0); HEMOGLOBIN 7.7 g/dl (12.0-16.0)
[2018-05-31] MEDS: ERTAPENEM SODIUM 1 GM in SOD CHLORIDE 0.9% 100 ML IVPB (14:26)
[2018-05-31] MEDS: QUETIAPINE 25 MG TAB PO (20:43)
[2018-05-31] MEDS: INSULIN GLARGINE [LANTus] (100 UNITS/ML) SYG SC (20:46)
[2018-05-31] MEDS: HALOPERIDOL 5 MG INJ IM (21:04)
[2018-06-01 06:56] LABS: ADD MAN DIFF? NO
[2018-06-01 07:04] LABS: WHITE BLOOD COUNT 6.3 10^3/ul (4.8-10.8)
[2018-06-01 07:04] LABS: BASOPHILS % 0.6 % (0.0-2.0); EOSINOPHILS # 0.2 10^3/ul (0.0-0.5); EOSINOPHILS % 2.9 % (0.0-7.0); HEMATOCRIT 22.8 % (37.0-47.0); HEMOGLOBIN 7.3 g/dl (12.0-16.0); LYMPHOCYTES # 2.3 10^3/ul (0.8-2.9); LYMPHOCYTES % 37.2 % (15.0-51.0); MEAN CORPUSCULAR HEMOGLOBIN 28.7 pg (29.0-33.0); MEAN CORPUSCULAR VOLUME 89.8 fl (82.0-101.0); MEAN PLATELET VOLUME 10.7 fl (7.4-10.4); MONOCYTE # 0.7 10^3/ul (0.3-0.9); MONOCYTES % 11.8 % (0.0-11.0); NEUTROPHILS % 47.2 % (39.0-77.0); PLATELET COUNT 425 10^3/UL (140-415); RED BLOOD COUNT 2.54 10^6/ul (4.20-5.40); RED CELL DISTRIBUTION WIDTH 14.4 % (11.5-14.5)
[2018-06-01] MEDS: INSULIN ASPART [NOVOLOG] 3 ML PEN SC ×7 (07:55→20:35)
[2018-06-01] MEDS: LISINOPRIL 10 MG TAB PO (08:57)
[2018-06-01] MEDS: SENNA TAB PO ×2 (08:58→20:34)
[2018-06-01] MEDS: ASPIRIN 81 MG TAB PO (08:58)
[2018-06-01] MEDS: METOPROLOL 25 MG TAB PO ×2 (08:58→20:34)
[2018-06-01] MEDS: DOCUSATE SODIUM 100 MG CAP PO ×2 (08:58→20:34)
[2018-06-01] MEDS: CLOPIDOGREL 75 MG TAB PO (08:58)
[2018-06-01] MEDS: HEPARIN 5,000 UNIT/0.5 ML VIAL SC ×2 (09:17→20:34)
[2018-06-01] MEDS: LORAZEPAM 2 MG INJ IV (09:19)
[2018-06-01] MEDS: hydrALAzine 20 MG INJ IV ×2 (11:16→16:47)
[2018-06-01] MEDS: ERTAPENEM SODIUM 1 GM in SOD CHLORIDE 0.9% 100 ML IVPB (13:25)
[2018-06-01] MEDS: SOD CHLORIDE 0.9% 1,000 ML IV (16:48)
[2018-06-01] MEDS: INSULIN GLARGINE [LANTus] (100 UNITS/ML) SYG SC (20:33)
[2018-06-01] MEDS: QUETIAPINE 25 MG TAB PO (20:34)
[2018-06-02] MEDS: SOD CHLORIDE 0.9% 1,000 ML IV ×3 (00:35→16:10)
[2018-06-02] MEDS: LORAZEPAM 2 MG INJ IV (03:51)
[2018-06-02 06:14] LABS: WHITE BLOOD COUNT 7.2 10^3/ul (4.8-10.8)
[2018-06-02 06:14] LABS: ADD MAN DIFF? NO; BASOPHIL # 0.1 10^3/ul (0.0-0.1); BASOPHILS % 0.7 % (0.0-2.0); EOSINOPHILS # 0.1 10^3/ul (0.0-0.5); EOSINOPHILS % 1.8 % (0.0-7.0); HEMATOCRIT 23.8 % (37.0-47.0); HEMOGLOBIN 7.6 g/dl (12.0-16.0); LYMPHOCYTES # 1.9 10^3/ul (0.8-2.9); LYMPHOCYTES % 26.9 % (15.0-51.0); MEAN CORPUSCULAR HEMOGLOBIN 27.8 pg (29.0-33.0); MEAN CORPUSCULAR HGB CONC 31.9 g/dl (32.0-37.0); MEAN CORPUSCULAR VOLUME 87.2 fl (82.0-101.0); MONOCYTE # 0.7 10^3/ul (0.3-0.9); MONOCYTES % 10.1 % (0.0-11.0); NEUTROPHIL # 4.3 10^3/ul (1.6-7.5); NEUTROPHILS % 60.2 % (39.0-77.0); PLATELET COUNT 475 10^3/UL (140-415); RED BLOOD COUNT 2.73 10^6/ul (4.20-5.40); RED CELL DISTRIBUTION WIDTH 14.4 % (11.5-14.5)
[2018-06-02 06:57] LABS: ALBUMIN 3.3 g/dl (3.3-4.9); ANION GAP 13 (8-16); BLOOD UREA NITROGEN 15 mg/dl (7-20); CALCIUM 8.5 mg/dl (8.4-10.2); CARBON DIOXIDE 23 mmol/L (21-31); CHLORIDE 112 mmol/L (97-110); CREATININE 1.26 mg/dl (0.44-1.00); GLUCOSE 81 mg/dl (70-220); MAGNESIUM 1.3 mg/dl (1.7-2.5); PHOSPHORUS 4.5 mg/dl (2.5-4.9); POTASSIUM 3.9 mmol/L (3.5-5.1); SODIUM 144 mmol/L (135-144)
[2018-06-02] MEDS: INSULIN ASPART [NOVOLOG] 3 ML PEN SC ×7 (07:35→20:18)
[2018-06-02] MEDS: LISINOPRIL 10 MG TAB PO (08:57)
[2018-06-02] MEDS: DOCUSATE SODIUM 100 MG CAP PO ×2 (08:57→20:00)
[2018-06-02] MEDS: SENNA TAB PO ×2 (08:57→20:00)
[2018-06-02] MEDS: METOPROLOL 25 MG TAB PO ×2 (08:57→20:00)
[2018-06-02] MEDS: ASPIRIN 81 MG TAB PO (08:57)
[2018-06-02] MEDS: CLOPIDOGREL 75 MG TAB PO (08:57)
[2018-06-02] MEDS: QUETIAPINE 25 MG TAB PO ×2 (08:58→20:00)
[2018-06-02] MEDS: HEPARIN 5,000 UNIT/0.5 ML VIAL SC ×2 (08:59→20:07)
[2018-06-02] MEDS: MAGNESIUM SULFATE 4 GM/100 ML 100 ML IVPB (10:22)
[2018-06-02] MEDS: ERTAPENEM SODIUM 1 GM in SOD CHLORIDE 0.9% 100 ML IVPB (14:27)
[2018-06-02] MEDS: hydrALAzine 20 MG INJ IV (16:17)
[2018-06-02] MEDS: INSULIN GLARGINE [LANTus] (100 UNITS/ML) SYG SC (20:09)
[2018-06-03] MEDS: hydrALAzine 20 MG INJ IV ×2 (02:36→12:23)
[2018-06-03] MEDS: LORAZEPAM 2 MG INJ IV ×2 (03:57→18:32)
[2018-06-03] MEDS: SOD CHLORIDE 0.9% 1,000 ML IV ×2 (05:05→18:30)
[2018-06-03 05:16] LABS: ADD MAN DIFF? NO
[2018-06-03 05:19] LABS: WHITE BLOOD COUNT 8.2 10^3/ul (4.8-10.8)
[2018-06-03 05:19] LABS: BASOPHIL # 0.1 10^3/ul (0.0-0.1); BASOPHILS % 0.9 % (0.0-2.0); EOSINOPHILS # 0.2 10^3/ul (0.0-0.5); EOSINOPHILS % 1.8 % (0.0-7.0); HEMOGLOBIN 7.7 g/dl (12.0-16.0); LYMPHOCYTES # 2.8 10^3/ul (0.8-2.9); LYMPHOCYTES % 33.7 % (15.0-51.0); MEAN CORPUSCULAR HEMOGLOBIN 29.1 pg (29.0-33.0); MEAN CORPUSCULAR HGB CONC 33.5 g/dl (32.0-37.0); MEAN CORPUSCULAR VOLUME 86.8 fl (82.0-101.0); MEAN PLATELET VOLUME 10.9 fl (7.4-10.4); MONOCYTES % 11.6 % (0.0-11.0); NEUTROPHIL # 4.3 10^3/ul (1.6-7.5); NEUTROPHILS % 51.8 % (39.0-77.0); PLATELET COUNT 445 10^3/UL (140-415); RED BLOOD COUNT 2.65 10^6/ul (4.20-5.40); RED CELL DISTRIBUTION WIDTH 14.3 % (11.5-14.5)
[2018-06-03 05:44] LABS: ALBUMIN 3.3 g/dl (3.3-4.9); ANION GAP 12 (8-16); BLOOD UREA NITROGEN 12 mg/dl (7-20); CALCIUM 8.5 mg/dl (8.4-10.2); CARBON DIOXIDE 24 mmol/L (21-31); CHLORIDE 112 mmol/L (97-110); CREATININE 1.21 mg/dl (0.44-1.00); GLUCOSE 66 mg/dl (70-220); MAGNESIUM 1.4 mg/dl (1.7-2.5); PHOSPHORUS 3.7 mg/dl (2.5-4.9); POTASSIUM 3.5 mmol/L (3.5-5.1); SODIUM 144 mmol/L (135-144)
[2018-06-03] MEDS: INSULIN ASPART [NOVOLOG] 3 ML PEN SC ×4 (08:00→21:00)
[2018-06-03] MEDS: DOCUSATE SODIUM 100 MG CAP PO ×2 (08:16→21:10)
[2018-06-03] MEDS: METOPROLOL 25 MG TAB PO ×3 (08:16→21:11)
[2018-06-03] MEDS: LISINOPRIL 10 MG TAB PO (08:16)
[2018-06-03] MEDS: CLOPIDOGREL 75 MG TAB PO (08:16)
[2018-06-03] MEDS: SENNA TAB PO ×2 (08:17→21:10)
[2018-06-03] MEDS: ASPIRIN 81 MG TAB PO (08:17)
[2018-06-03] MEDS: QUETIAPINE 25 MG TAB PO ×2 (08:17→21:10)
[2018-06-03] MEDS: HEPARIN 5,000 UNIT/0.5 ML VIAL SC ×2 (08:18→21:26)
[2018-06-03] MEDS: AMLODIPINE 10 MG TAB PO (09:23)
[2018-06-03] MEDS: ERTAPENEM SODIUM 1 GM in SOD CHLORIDE 0.9% 100 ML IVPB (13:31)
[2018-06-03] MEDS: INSULIN GLARGINE [LANTus] (100 UNITS/ML) SYG SC (20:00)
[2018-06-04] MEDS: LORAZEPAM 2 MG INJ IV (01:43)
[2018-06-04 06:04] LABS: ADD MAN DIFF? NO
[2018-06-04 06:10] LABS: WHITE BLOOD COUNT 5.3 10^3/ul (4.8-10.8)
[2018-06-04 06:10] LABS: BASOPHIL # 0.1 10^3/ul (0.0-0.1); BASOPHILS % 0.9 % (0.0-2.0); EOSINOPHILS # 0.1 10^3/ul (0.0-0.5); EOSINOPHILS % 2.1 % (0.0-7.0); HEMATOCRIT 22.3 % (37.0-47.0); HEMOGLOBIN 7.3 g/dl (12.0-16.0); LYMPHOCYTES # 1.9 10^3/ul (0.8-2.9); LYMPHOCYTES % 35.7 % (15.0-51.0); MEAN CORPUSCULAR HGB CONC 32.7 g/dl (32.0-37.0); MEAN CORPUSCULAR VOLUME 88.5 fl (82.0-101.0); MEAN PLATELET VOLUME 11.2 fl (7.4-10.4); MONOCYTE # 0.5 10^3/ul (0.3-0.9); NEUTROPHIL # 2.7 10^3/ul (1.6-7.5); NEUTROPHILS % 51.1 % (39.0-77.0); PLATELET COUNT 393 10^3/UL (140-415); RED BLOOD COUNT 2.52 10^6/ul (4.20-5.40); RED CELL DISTRIBUTION WIDTH 14.3 % (11.5-14.5)
[2018-06-04 06:53] LABS: ALBUMIN 2.9 g/dl (3.3-4.9); ANION GAP 13 (8-16); BLOOD UREA NITROGEN 14 mg/dl (7-20); CALCIUM 7.9 mg/dl (8.4-10.2); CARBON DIOXIDE 22 mmol/L (21-31); CHLORIDE 111 mmol/L (97-110); CREATININE 1.12 mg/dl (0.44-1.00); GLUCOSE 117 mg/dl (70-220); MAGNESIUM 1.2 mg/dl (1.7-2.5); PHOSPHORUS 4.7 mg/dl (2.5-4.9); POTASSIUM 3.3 mmol/L (3.5-5.1); SODIUM 143 mmol/L (135-144)
[2018-06-04] MEDS: INSULIN ASPART [NOVOLOG] 3 ML PEN SC ×4 (07:57→21:25)
[2018-06-04] MEDS: SENNA TAB PO ×2 (08:09→20:35)
[2018-06-04] MEDS: QUETIAPINE 25 MG TAB PO ×2 (08:09→20:35)
[2018-06-04] MEDS: CLOPIDOGREL 75 MG TAB PO (08:09)
[2018-06-04] MEDS: ASPIRIN 81 MG TAB PO (08:09)
[2018-06-04] MEDS: DOCUSATE SODIUM 100 MG CAP PO ×2 (08:09→20:35)
[2018-06-04] MEDS: METOPROLOL 25 MG TAB PO ×2 (08:10→20:35)
[2018-06-04] MEDS: AMLODIPINE 10 MG TAB PO (08:10)
[2018-06-04] MEDS: HEPARIN 5,000 UNIT/0.5 ML VIAL SC ×2 (08:11→20:36)
[2018-06-04] MEDS: SOD CHLORIDE 0.9% 1,000 ML IV ×2 (08:16→20:51)
[2018-06-04] MEDS: MAGNESIUM OXIDE 400 MG TAB PO (12:40)
[2018-06-04] MEDS: POTASSIUM CHLORIDE 100 ML IVPB ×2 (13:48→16:01)
[2018-06-04] MEDS: INSULIN GLARGINE [LANTus] (100 UNITS/ML) SYG SC (21:24)
[2018-06-05] MEDS: LORAZEPAM 2 MG INJ IV (01:52)
[2018-06-05] MEDS: SOD CHLORIDE 0.9% 1,000 ML IV ×2 (01:56→16:24)
[2018-06-05 06:05] LABS: ADD MAN DIFF? NO
[2018-06-05 06:11] LABS: WHITE BLOOD COUNT 7.1 10^3/ul (4.8-10.8)
[2018-06-05 06:11] LABS: BASOPHILS % 0.6 % (0.0-2.0); EOSINOPHILS # 0.1 10^3/ul (0.0-0.5); EOSINOPHILS % 1.6 % (0.0-7.0); HEMATOCRIT 23.7 % (37.0-47.0); HEMOGLOBIN 7.6 g/dl (12.0-16.0); LYMPHOCYTES # 2.2 10^3/ul (0.8-2.9); LYMPHOCYTES % 30.6 % (15.0-51.0); MEAN CORPUSCULAR HEMOGLOBIN 28.5 pg (29.0-33.0); MEAN CORPUSCULAR HGB CONC 32.1 g/dl (32.0-37.0); MEAN CORPUSCULAR VOLUME 88.8 fl (82.0-101.0); MONOCYTE # 0.7 10^3/ul (0.3-0.9); MONOCYTES % 10.1 % (0.0-11.0); NEUTROPHILS % 56.8 % (39.0-77.0); PLATELET COUNT 412 10^3/UL (140-415); RED BLOOD COUNT 2.67 10^6/ul (4.20-5.40); RED CELL DISTRIBUTION WIDTH 14.4 % (11.5-14.5)
[2018-06-05 07:14] LABS: ANION GAP 13 (8-16); BLOOD UREA NITROGEN 17 mg/dl (7-20); CALCIUM 8.3 mg/dl (8.4-10.2); CARBON DIOXIDE 22 mmol/L (21-31); CHLORIDE 113 mmol/L (97-110); CREATININE 1.19 mg/dl (0.44-1.00); GLUCOSE 118 mg/dl (70-220); MAGNESIUM 1.4 mg/dl (1.7-2.5); PHOSPHORUS 3.9 mg/dl (2.5-4.9); POTASSIUM 4.1 mmol/L (3.5-5.1); SODIUM 144 mmol/L (135-144)
[2018-06-05] MEDS: INSULIN ASPART [NOVOLOG] 3 ML PEN SC ×4 (08:00→21:00)
[2018-06-05] MEDS: DOCUSATE SODIUM 100 MG CAP PO ×2 (09:23→20:44)
[2018-06-05] MEDS: ASPIRIN 81 MG TAB PO (09:23)
[2018-06-05] MEDS: SENNA TAB PO ×2 (09:24→20:44)
[2018-06-05] MEDS: METOPROLOL 25 MG TAB PO ×2 (09:24→20:44)
[2018-06-05] MEDS: CLOPIDOGREL 75 MG TAB PO (09:24)
[2018-06-05] MEDS: QUETIAPINE 25 MG TAB PO ×2 (09:24→20:43)
[2018-06-05] MEDS: AMLODIPINE 10 MG TAB PO (09:24)
[2018-06-05] MEDS: HEPARIN 5,000 UNIT/0.5 ML VIAL SC ×2 (09:36→20:59)
[2018-06-05] MEDS: MAGNESIUM SULFATE 2 GM/50 ML 50 ML IVPB (13:01)
[2018-06-05] MEDS: LISINOPRIL 10 MG TAB PO (15:42)
[2018-06-05] MEDS: INSULIN GLARGINE [LANTus] (100 UNITS/ML) SYG SC (20:56)
[2018-06-06] MEDS: LORAZEPAM 2 MG INJ IV (01:54)
[2018-06-06] MEDS: SOD CHLORIDE 0.9% 1,000 ML IV (04:32)
[2018-06-06 05:17] LABS: ADD MAN DIFF? NO
[2018-06-06 05:25] LABS: WHITE BLOOD COUNT 6.4 10^3/ul (4.8-10.8)
[2018-06-06 05:25] LABS: ABNORMAL IP MESSAGE 1; BASOPHIL # 0.1 10^3/ul (0.0-0.1); BASOPHILS % 0.8 % (0.0-2.0); EOSINOPHILS # 0.1 10^3/ul (0.0-0.5); EOSINOPHILS % 1.3 % (0.0-7.0); LYMPHOCYTES # 1.4 10^3/ul (0.8-2.9); MEAN CORPUSCULAR HEMOGLOBIN 28.4 pg (29.0-33.0); MEAN CORPUSCULAR HGB CONC 31.9 g/dl (32.0-37.0); MEAN PLATELET VOLUME 11.2 fl (7.4-10.4); MONOCYTE # 0.5 10^3/ul (0.3-0.9); MONOCYTES % 8.3 % (0.0-11.0); NEUTROPHIL # 4.3 10^3/ul (1.6-7.5); NEUTROPHILS % 67.3 % (39.0-77.0); PLATELET COUNT 351 10^3/UL (140-415); RED BLOOD COUNT 2.36 10^6/ul (4.20-5.40); RED CELL DISTRIBUTION WIDTH 14.6 % (11.5-14.5)
[2018-06-06 05:42] LABS: HEMOGLOBIN 6.7 g/dl (12.0-16.0)
[2018-06-06 05:43] LABS: POSITIVE DIFF @See below
[2018-06-06 06:07] LABS: ANION GAP 11 (8-16); BLOOD UREA NITROGEN 18 mg/dl (7-20); CALCIUM 8.1 mg/dl (8.4-10.2); CARBON DIOXIDE 22 mmol/L (21-31); CHLORIDE 113 mmol/L (97-110); CREATININE 1.25 mg/dl (0.44-1.00); GLUCOSE 147 mg/dl (70-220); MAGNESIUM 1.9 mg/dl (1.7-2.5); PHOSPHORUS 4.7 mg/dl (2.5-4.9); SODIUM 142 mmol/L (135-144)
[2018-06-06] MEDS: INSULIN ASPART [NOVOLOG] 3 ML PEN SC ×4 (08:00→20:59)
[2018-06-06] MEDS: DOCUSATE SODIUM 100 MG CAP PO ×2 (08:22→20:45)
[2018-06-06] MEDS: QUETIAPINE 25 MG TAB PO ×2 (08:23→20:45)
[2018-06-06] MEDS: CLOPIDOGREL 75 MG TAB PO (08:23)
[2018-06-06] MEDS: ASPIRIN 81 MG TAB PO (08:23)
[2018-06-06] MEDS: SENNA TAB PO ×2 (08:23→20:45)
[2018-06-06] MEDS: HEPARIN 5,000 UNIT/0.5 ML VIAL SC ×2 (08:23→20:45)
[2018-06-06] MEDS: LISINOPRIL 20 MG TAB PO (08:24)
[2018-06-06] MEDS: AMLODIPINE 10 MG TAB PO (08:24)
[2018-06-06] MEDS: METOPROLOL 25 MG TAB PO ×2 (08:25→20:50)
[2018-06-06 10:32] LABS: IMMEDIATE SPIN CROSSMATCH 1 1
[2018-06-06] MEDS: SOD CHLORIDE 0.45% 1,000 ML IV (10:47)
[2018-06-06 11:26] LABS: RETICULOCYTE RBC 2.39
[2018-06-06 11:26] LABS: RETICULOCYTE COUNT # 0.074 X10^6 (0.020-0.110); RETICULOCYTE COUNT % 3.1 % (0.5-1.5)
[2018-06-06 11:44] LABS: Allen Test ACCEPTAB; Arterial Base Excess -3.5 mmol/L (-3.0-3); Arterial Blood Gas Oxygen Sat 90.9 mmHG (95.0-100.0); Arterial COHb 0.4 % (0.0-3.0); Arterial Fraction of Oxyhgb 90.2 % (93.0-99.0); Arterial HCO3 21.1 mmol/L (22.0-26.0); Arterial MetHb 0.4 % (0.0-1.5); Arterial Total Hemglobin 7.6 g/dl (12.0-18.0); Arterial pCO2 35.8 mmhg (35-45); MODE NASAL CANNULA; Site Right Radial
[2018-06-06 11:48] LABS: LACTATE DEHYDROGENASE 535 IU/L (313-618)
[2018-06-06] MEDS: ALBUTEROL/IPRATROPIUM (NEB) 3 ML AMP HHN ×3 (11:48→19:46)
[2018-06-06 11:52] LABS: IRON 31 ug/dl (35-150)
[2018-06-06 11:57] LABS: TROPONIN-I < 0.012 ng/ml (0.000-0.120)
[2018-06-06 11:57] LABS: B-TYPE NATRIURETIC PEPTIDE 4880 PG/ML (0-450)
[2018-06-06 12:01] LABS: % IRON SATURATION 15 % SAT (22-52); TOTAL IRON BINDING CAPACITY 210 ug/dl (241-421)
[2018-06-06] MEDS ORDERED: PIPER-TAZO 3.375 GM IV (PMX) 100 ML IVPB (12:30)
[2018-06-06] MEDS: FUROSEMIDE 20 MG INJ IV (12:43)
[2018-06-06] MEDS ORDERED: VANCOMYCIN IV PER PHARMACY XX (14:30)
[2018-06-06] MEDS: VANCOMYCIN 1 GM 250 ML IVPB (16:24)
[2018-06-06] MEDS: PIPER-TAZO 3.375 GM IV (PMX) 100 ML IVPB (19:00)
[2018-06-06] MEDS: INSULIN GLARGINE [LANTus] (100 UNITS/ML) SYG SC (20:43)
[2018-06-07] MEDS: LORAZEPAM 2 MG INJ IV ×2 (01:01→22:33)
[2018-06-07] MEDS: PIPER-TAZO 3.375 GM IV (PMX) 100 ML IVPB ×3 (01:01→12:00)
[2018-06-07] MEDS: ALBUTEROL/IPRATROPIUM (NEB) 3 ML AMP HHN ×4 (02:00→19:40)
[2018-06-07] MEDS: INSULIN ASPART [NOVOLOG] 3 ML PEN SC ×4 (08:00→20:47)
[2018-06-07] MEDS: CLOPIDOGREL 75 MG TAB PO (08:26)
[2018-06-07] MEDS: DOCUSATE SODIUM 100 MG CAP PO ×2 (08:26→20:43)
[2018-06-07] MEDS: HEPARIN 5,000 UNIT/0.5 ML VIAL SC ×2 (08:26→20:46)
[2018-06-07] MEDS: ASPIRIN 81 MG TAB PO (08:26)
[2018-06-07] MEDS: SENNA TAB PO ×2 (08:27→20:43)
[2018-06-07] MEDS: LISINOPRIL 20 MG TAB PO (08:27)
[2018-06-07] MEDS: METOPROLOL 25 MG TAB PO ×2 (08:27→20:44)
[2018-06-07] MEDS: AMLODIPINE 10 MG TAB PO (08:27)
[2018-06-07] MEDS: QUETIAPINE 25 MG TAB PO ×2 (08:27→20:43)
[2018-06-07 08:43] LABS: ADD MAN DIFF? NO
[2018-06-07 08:48] LABS: WHITE BLOOD COUNT 7.8 10^3/ul (4.8-10.8)
[2018-06-07 08:48] LABS: BASOPHIL # 0.1 10^3/ul (0.0-0.1); BASOPHILS % 0.8 % (0.0-2.0); EOSINOPHILS # 0.1 10^3/ul (0.0-0.5); EOSINOPHILS % 0.8 % (0.0-7.0); HEMATOCRIT 28.2 % (37.0-47.0); HEMOGLOBIN 9.2 g/dl (12.0-16.0); LYMPHOCYTES # 1.8 10^3/ul (0.8-2.9); LYMPHOCYTES % 23.4 % (15.0-51.0); MEAN CORPUSCULAR HEMOGLOBIN 28.1 pg (29.0-33.0); MEAN CORPUSCULAR HGB CONC 32.6 g/dl (32.0-37.0); MEAN CORPUSCULAR VOLUME 86.2 fl (82.0-101.0); MEAN PLATELET VOLUME 11.2 fl (7.4-10.4); MONOCYTE # 0.8 10^3/ul (0.3-0.9); MONOCYTES % 10.8 % (0.0-11.0); NEUTROPHILS % 63.9 % (39.0-77.0); PLATELET COUNT 375 10^3/UL (140-415); RED BLOOD COUNT 3.27 10^6/ul (4.20-5.40); RED CELL DISTRIBUTION WIDTH 14.6 % (11.5-14.5)
[2018-06-07 09:17] LABS: ANION GAP 14 (8-16); BLOOD UREA NITROGEN 17 mg/dl (7-20); CALCIUM 8.8 mg/dl (8.4-10.2); CARBON DIOXIDE 23 mmol/L (21-31); CHLORIDE 110 mmol/L (97-110); CREATININE 1.38 mg/dl (0.44-1.00); GLUCOSE 105 mg/dl (70-220); MAGNESIUM 1.6 mg/dl (1.7-2.5); PHOSPHORUS 4.8 mg/dl (2.5-4.9); POTASSIUM 4.1 mmol/L (3.5-5.1); SODIUM 143 mmol/L (135-144)
[2018-06-07] MEDS ORDERED: MAGNESIUM OXIDE 400 MG TAB (12:40)
[2018-06-07] MEDS: MAGNESIUM OXIDE 400 MG TAB PO (13:09)
[2018-06-07] MEDS ORDERED: PIPER-TAZO 3.375 GM IV (PMX) 100 ML IVPB ×2 (14:00→22:00)
[2018-06-07] MEDS: predniSONE 20 MG TAB PO (14:02)
[2018-06-07] MEDS ORDERED: VANCOMYCIN 750 MG in SOD CHLORIDE 0.9% 150 ML IVPB (16:00)
[2018-06-07] MEDS: MEROPENEM 500MG/50 ML (PMX) 50 ML IVPB (17:33)
[2018-06-07 19:32] LABS: HAPTOGLOBIN 254 mg/dL (43-212)
[2018-06-07] MEDS: BUDESONIDE (NEB) 0.5MG/2ML AMP HHN (19:40)
[2018-06-07 20:20] LABS: OCCULT BLOOD STOOL NEGATIVE (NEGATIVE)
[2018-06-07] MEDS: INSULIN GLARGINE [LANTus] (100 UNITS/ML) SYG SC (20:48)
[2018-06-08] MEDS: MEROPENEM 500MG/50 ML (PMX) 50 ML IVPB ×3 (01:05→22:12)
[2018-06-08] MEDS: ALBUTEROL/IPRATROPIUM (NEB) 3 ML AMP HHN ×4 (01:37→21:06)
[2018-06-08] MEDS: VANCOMYCIN 750 MG in SOD CHLORIDE 0.9% 150 ML IVPB (04:19)
[2018-06-08 05:40] LABS: ADD MAN DIFF? NO
[2018-06-08 05:45] LABS: HEMATOCRIT 26.9 % (37.0-47.0); HEMOGLOBIN 8.9 g/dl (12.0-16.0); LYMPHOCYTES # 0.8 10^3/ul (0.8-2.9); LYMPHOCYTES % 10.8 % (15.0-51.0); MEAN CORPUSCULAR HEMOGLOBIN 28.6 pg (29.0-33.0); MEAN CORPUSCULAR HGB CONC 33.1 g/dl (32.0-37.0); MEAN CORPUSCULAR VOLUME 86.5 fl (82.0-101.0); MEAN PLATELET VOLUME 11.2 fl (7.4-10.4); MONOCYTE # 0.5 10^3/ul (0.3-0.9); MONOCYTES % 6.4 % (0.0-11.0); NEUTROPHIL # 6.4 10^3/ul (1.6-7.5); NEUTROPHILS % 82.4 % (39.0-77.0); PLATELET COUNT 347 10^3/UL (140-415); RED BLOOD COUNT 3.11 10^6/ul (4.20-5.40); RED CELL DISTRIBUTION WIDTH 14.4 % (11.5-14.5)
[2018-06-08 05:45] LABS: WHITE BLOOD COUNT 7.7 10^3/ul (4.8-10.8)
[2018-06-08 06:17] LABS: ANION GAP 16 (8-16); BLOOD UREA NITROGEN 17 mg/dl (7-20); CALCIUM 8.5 mg/dl (8.4-10.2); CARBON DIOXIDE 21 mmol/L (21-31); CHLORIDE 109 mmol/L (97-110); CREATININE 1.43 mg/dl (0.44-1.00); GLUCOSE 212 mg/dl (70-220); MAGNESIUM 1.6 mg/dl (1.7-2.5); PHOSPHORUS 4.7 mg/dl (2.5-4.9); POTASSIUM 3.5 mmol/L (3.5-5.1); SODIUM 142 mmol/L (135-144)
[2018-06-08] MEDS: hydrALAzine 20 MG INJ IV (07:08)
[2018-06-08] MEDS: BUDESONIDE (NEB) 0.5MG/2ML AMP HHN ×2 (08:04→21:07)
[2018-06-08] MEDS: predniSONE 20 MG TAB PO (08:27)
[2018-06-08] MEDS: SENNA TAB PO ×2 (08:27→21:00)
[2018-06-08] MEDS: QUETIAPINE 25 MG TAB PO ×2 (08:27→21:00)
[2018-06-08] MEDS: CLOPIDOGREL 75 MG TAB PO (08:27)
[2018-06-08] MEDS: AMLODIPINE 10 MG TAB PO (08:28)
[2018-06-08] MEDS: ASPIRIN 81 MG TAB PO (08:28)
[2018-06-08] MEDS: LISINOPRIL 20 MG TAB PO (08:28)
[2018-06-08] MEDS: METOPROLOL 25 MG TAB PO (08:29)
[2018-06-08] MEDS: DOCUSATE SODIUM 100 MG CAP PO ×2 (08:29→21:00)
[2018-06-08] MEDS: HEPARIN 5,000 UNIT/0.5 ML VIAL SC ×2 (08:29→22:06)
[2018-06-08] MEDS: INSULIN ASPART [NOVOLOG] 3 ML PEN SC ×5 (08:30→23:04)
[2018-06-08] MEDS: MAGNESIUM OXIDE 400 MG TAB PO (11:41)
[2018-06-08] MEDS: INSULIN GLARGINE [LANTus] (100 UNITS/ML) SYG SC ×2 (22:51→23:05)
[2018-06-08] MEDS ORDERED: INSULIN GLARGINE [LANTus] (100 UNITS/ML) SYG SC (23:00)
[2018-06-09] MEDS: ALBUTEROL/IPRATROPIUM (NEB) 3 ML AMP HHN ×4 (01:29→20:29)
[2018-06-09] MEDS: INSULIN ASPART [NOVOLOG] 3 ML PEN SC ×9 (03:10→20:42)
[2018-06-09 06:16] LABS: ADD MAN DIFF? NO
[2018-06-09 06:27] LABS: ABNORMAL IP MESSAGE 1; BASOPHILS % 0.1 % (0.0-2.0); HEMATOCRIT 27.4 % (37.0-47.0); HEMOGLOBIN 8.9 g/dl (12.0-16.0); LYMPHOCYTES # 0.6 10^3/ul (0.8-2.9); LYMPHOCYTES % 7.6 % (15.0-51.0); MEAN CORPUSCULAR HEMOGLOBIN 28.8 pg (29.0-33.0); MEAN CORPUSCULAR HGB CONC 32.5 g/dl (32.0-37.0); MEAN CORPUSCULAR VOLUME 88.7 fl (82.0-101.0); MEAN PLATELET VOLUME 11.8 fl (7.4-10.4); MONOCYTE # 0.6 10^3/ul (0.3-0.9); MONOCYTES % 8.5 % (0.0-11.0); NEUTROPHIL # 6.2 10^3/ul (1.6-7.5); NEUTROPHILS % 83.3 % (39.0-77.0); PLATELET COUNT 333 10^3/UL (140-415); RED BLOOD COUNT 3.09 10^6/ul (4.20-5.40); RED CELL DISTRIBUTION WIDTH 14.8 % (11.5-14.5)
[2018-06-09 06:27] LABS: WHITE BLOOD COUNT 7.5 10^3/ul (4.8-10.8)
[2018-06-09 06:51] LABS: ANION GAP 14 (8-16); BLOOD UREA NITROGEN 35 mg/dl (7-20); CALCIUM 8.5 mg/dl (8.4-10.2); CARBON DIOXIDE 23 mmol/L (21-31); CHLORIDE 108 mmol/L (97-110); CREATININE 1.92 mg/dl (0.44-1.00); GLUCOSE 268 mg/dl (70-220); PHOSPHORUS 4.3 mg/dl (2.5-4.9); POTASSIUM 4.2 mmol/L (3.5-5.1); SODIUM 141 mmol/L (135-144)
[2018-06-09 07:07] LABS: POSITIVE DIFF @See below
[2018-06-09] MEDS: QUETIAPINE 25 MG TAB PO ×2 (08:26→20:34)
[2018-06-09] MEDS: CLOPIDOGREL 75 MG TAB PO (08:26)
[2018-06-09] MEDS: ASPIRIN 81 MG TAB PO (08:26)
[2018-06-09] MEDS: SENNA TAB PO ×2 (08:26→20:35)
[2018-06-09] MEDS: DOCUSATE SODIUM 100 MG CAP PO ×2 (08:26→20:34)
[2018-06-09] MEDS: MEROPENEM 500MG/50 ML (PMX) 50 ML IVPB ×2 (08:26→20:34)
[2018-06-09] MEDS: HEPARIN 5,000 UNIT/0.5 ML VIAL SC ×2 (08:30→20:36)
[2018-06-09] MEDS: AMLODIPINE 10 MG TAB PO (08:32)
[2018-06-09] MEDS: LISINOPRIL 20 MG TAB PO (08:32)
[2018-06-09] MEDS: predniSONE 10 MG TAB PO (08:34)
[2018-06-09] MEDS: BUDESONIDE (NEB) 0.5MG/2ML AMP HHN ×2 (09:04→20:29)
[2018-06-09 15:34] LABS: VANCOMYCIN,TROUGH 9.5 ug/ml (10.0-20.0)
[2018-06-09] MEDS: VANCOMYCIN 750 MG in SOD CHLORIDE 0.9% 150 ML IVPB (16:12)
[2018-06-09] MEDS ORDERED: INSULIN GLARGINE [LANTus] (100 UNITS/ML) SYG SC (20:00)
[2018-06-09] MEDS: INSULIN GLARGINE [LANTus] (100 UNITS/ML) SYG SC ×2 (20:16→21:24)
[2018-06-10] MEDS: ALBUTEROL/IPRATROPIUM (NEB) 3 ML AMP HHN ×4 (01:22→19:39)
[2018-06-10] MEDS: ACCU-CHEK XX (02:00)
[2018-06-10 04:57] LABS: ADD MAN DIFF? NO
[2018-06-10 05:03] LABS: WHITE BLOOD COUNT 10.8 10^3/ul (4.8-10.8)
[2018-06-10 05:03] LABS: BASOPHILS % 0.1 % (0.0-2.0); HEMATOCRIT 28.8 % (37.0-47.0); HEMOGLOBIN 9.1 g/dl (12.0-16.0); LYMPHOCYTES # 1.1 10^3/ul (0.8-2.9); MEAN CORPUSCULAR HEMOGLOBIN 28.4 pg (29.0-33.0); MEAN CORPUSCULAR HGB CONC 31.6 g/dl (32.0-37.0); MEAN PLATELET VOLUME 11.5 fl (7.4-10.4); MONOCYTE # 0.6 10^3/ul (0.3-0.9); MONOCYTES % 5.6 % (0.0-11.0); NEUTROPHIL # 9.1 10^3/ul (1.6-7.5); PLATELET COUNT 330 10^3/UL (140-415); RED CELL DISTRIBUTION WIDTH 14.3 % (11.5-14.5)
[2018-06-10 05:33] LABS: ANION GAP 13 (8-16); BLOOD UREA NITROGEN 63 mg/dl (7-20); CALCIUM 8.1 mg/dl (8.4-10.2); CARBON DIOXIDE 22 mmol/L (21-31); CHLORIDE 110 mmol/L (97-110); CREATININE 2.01 mg/dl (0.44-1.00); GLUCOSE 267 mg/dl (70-220); PHOSPHORUS 4.2 mg/dl (2.5-4.9); POTASSIUM 5.3 mmol/L (3.5-5.1); SODIUM 140 mmol/L (135-144)
[2018-06-10] MEDS: INSULIN ASPART [NOVOLOG] 3 ML PEN SC ×7 (07:48→20:16)
[2018-06-10] MEDS: ASPIRIN 81 MG TAB PO (08:40)
[2018-06-10] MEDS: DOCUSATE SODIUM 100 MG CAP PO ×2 (08:40→20:25)
[2018-06-10] MEDS: QUETIAPINE 25 MG TAB PO ×2 (08:40→20:25)
[2018-06-10] MEDS: CLOPIDOGREL 75 MG TAB PO (08:40)
[2018-06-10] MEDS: SENNA TAB PO ×2 (08:40→20:18)
[2018-06-10] MEDS: HEPARIN 5,000 UNIT/0.5 ML VIAL SC ×2 (08:42→20:17)
[2018-06-10] MEDS: AMLODIPINE 10 MG TAB PO (08:42)
[2018-06-10] MEDS: predniSONE 20 MG TAB PO (08:43)
[2018-06-10] MEDS: MEROPENEM 500MG/50 ML (PMX) 50 ML IVPB ×2 (08:43→20:27)
[2018-06-10] MEDS: LISINOPRIL 20 MG TAB PO (08:43)
[2018-06-10] MEDS: BUDESONIDE (NEB) 0.5MG/2ML AMP HHN ×2 (08:55→19:39)
[2018-06-10] MEDS: INSULIN GLARGINE [LANTus] (100 UNITS/ML) SYG SC (20:17)
[2018-06-11] MEDS: ALBUTEROL/IPRATROPIUM (NEB) 3 ML AMP HHN ×3 (02:00→13:07)
[2018-06-11] MEDS: ACCU-CHEK XX (02:07)
[2018-06-11] MEDS: INSULIN ASPART [NOVOLOG] 3 ML PEN SC ×8 (03:07→21:18)
[2018-06-11 05:39] LABS: ADD MAN DIFF? NO
[2018-06-11 05:43] LABS: WHITE BLOOD COUNT 8.4 10^3/ul (4.8-10.8)
[2018-06-11 05:43] LABS: EOSINOPHILS % 0.1 % (0.0-7.0); HEMATOCRIT 29.8 % (37.0-47.0); HEMOGLOBIN 9.6 g/dl (12.0-16.0); LYMPHOCYTES # 1.3 10^3/ul (0.8-2.9); LYMPHOCYTES % 15.3 % (15.0-51.0); MEAN CORPUSCULAR HEMOGLOBIN 28.2 pg (29.0-33.0); MEAN CORPUSCULAR HGB CONC 32.2 g/dl (32.0-37.0); MEAN CORPUSCULAR VOLUME 87.6 fl (82.0-101.0); MEAN PLATELET VOLUME 11.8 fl (7.4-10.4); MONOCYTE # 0.8 10^3/ul (0.3-0.9); MONOCYTES % 9.2 % (0.0-11.0); NEUTROPHIL # 6.3 10^3/ul (1.6-7.5); NEUTROPHILS % 74.6 % (39.0-77.0); PLATELET COUNT 365 10^3/UL (140-415); RED CELL DISTRIBUTION WIDTH 14.1 % (11.5-14.5)
[2018-06-11 06:13] LABS: ANION GAP 11 (8-16); BLOOD UREA NITROGEN 72 mg/dl (7-20); CALCIUM 8.4 mg/dl (8.4-10.2); CARBON DIOXIDE 23 mmol/L (21-31); CHLORIDE 111 mmol/L (97-110); CREATININE 1.77 mg/dl (0.44-1.00); GLUCOSE 227 mg/dl (70-220); PHOSPHORUS 3.9 mg/dl (2.5-4.9); POTASSIUM 4.1 mmol/L (3.5-5.1); SODIUM 141 mmol/L (135-144)
[2018-06-11] MEDS: QUETIAPINE 25 MG TAB PO ×2 (08:09→21:20)
[2018-06-11] MEDS: DOCUSATE SODIUM 100 MG CAP PO ×2 (08:09→21:20)
[2018-06-11] MEDS: HEPARIN 5,000 UNIT/0.5 ML VIAL SC ×2 (08:09→21:19)
[2018-06-11] MEDS: ASPIRIN 81 MG TAB PO (08:09)
[2018-06-11] MEDS: SENNA TAB PO ×2 (08:09→21:20)
[2018-06-11] MEDS: CLOPIDOGREL 75 MG TAB PO (08:09)
[2018-06-11] MEDS: LISINOPRIL 20 MG TAB PO (08:10)
[2018-06-11] MEDS: predniSONE 10 MG TAB PO (08:10)
[2018-06-11] MEDS: AMLODIPINE 10 MG TAB PO (08:10)
[2018-06-11] MEDS: BUDESONIDE (NEB) 0.5MG/2ML AMP HHN ×2 (08:13→21:12)
[2018-06-11] MEDS: MEROPENEM 500MG/50 ML (PMX) 50 ML IVPB (08:57)
[2018-06-11] MEDS ORDERED: INSULIN GLARGINE [LANTus] (100 UNITS/ML) SYG SC (20:00)
[2018-06-11] MEDS: INSULIN GLARGINE [LANTus] (100 UNITS/ML) SYG SC (20:18)
[2018-06-12] MEDS: ACCU-CHEK XX (02:00)
[2018-06-12 05:43] LABS: ADD MAN DIFF? NO
[2018-06-12 05:46] LABS: WHITE BLOOD COUNT 9.1 10^3/ul (4.8-10.8)
[2018-06-12 05:46] LABS: BASOPHILS % 0.2 % (0.0-2.0); EOSINOPHILS # 0.1 10^3/ul (0.0-0.5); EOSINOPHILS % 0.8 % (0.0-7.0); HEMATOCRIT 30.7 % (37.0-47.0); HEMOGLOBIN 10.2 g/dl (12.0-16.0); LYMPHOCYTES # 2.4 10^3/ul (0.8-2.9); LYMPHOCYTES % 26.5 % (15.0-51.0); MEAN CORPUSCULAR HEMOGLOBIN 29.1 pg (29.0-33.0); MEAN CORPUSCULAR HGB CONC 33.2 g/dl (32.0-37.0); MEAN CORPUSCULAR VOLUME 87.5 fl (82.0-101.0); MEAN PLATELET VOLUME 12.2 fl (7.4-10.4); MONOCYTES % 11.4 % (0.0-11.0); NEUTROPHIL # 5.5 10^3/ul (1.6-7.5); NEUTROPHILS % 60.4 % (39.0-77.0); PLATELET COUNT 307 10^3/UL (140-415); RED BLOOD COUNT 3.51 10^6/ul (4.20-5.40); RED CELL DISTRIBUTION WIDTH 13.9 % (11.5-14.5)
[2018-06-12 06:09] LABS: POSITIVE DIFF @See below
[2018-06-12 06:10] LABS: ALANINE AMINOTRANSFERASE 23 IU/L (13-69); ALBUMIN 2.9 g/dl (3.3-4.9); ALBUMIN/GLOBULIN RATIO 0.82; ALKALINE PHOSPHATASE 68 IU/L (42-121); ANION GAP 12 (8-16); ASPARTATE AMINO TRANSFERASE 19 IU/L (15-46); BILIRUBIN,INDIRECT 0.3 mg/dl (0-1.1); BILIRUBIN,TOTAL 0.3 mg/dl (0.2-1.3); BLOOD UREA NITROGEN 69 mg/dl (7-20); CALCIUM 8.6 mg/dl (8.4-10.2); CARBON DIOXIDE 22 mmol/L (21-31); CHLORIDE 112 mmol/L (97-110); CREATININE 1.39 mg/dl (0.44-1.00); GLUCOSE 136 mg/dl (70-220); POTASSIUM 4.4 mmol/L (3.5-5.1); SODIUM 142 mmol/L (135-144); TOTAL PROTEIN 6.4 g/dl (6.1-8.1)
[2018-06-12 06:14] LABS: PROTIME 31.2 Sec (11.9-14.9); PT RATIO 2.4
[2018-06-12 06:27] LABS: MAGNESIUM 1.8 mg/dl (1.7-2.5)
[2018-06-12 06:27] LABS: PHOSPHORUS 4.2 mg/dl (2.5-4.9)
[2018-06-12 06:37] LABS: THYROID STIMULATING HORMONE 0.512 MIU/L (0.465-4.680)
[2018-06-12] MEDS: INSULIN ASPART [NOVOLOG] 3 ML PEN SC ×7 (07:52→21:17)
[2018-06-12] MEDS: ALBUTEROL/IPRATROPIUM (NEB) 3 ML AMP HHN ×3 (08:21→16:19)
[2018-06-12] MEDS: BUDESONIDE (NEB) 0.5MG/2ML AMP HHN ×2 (08:21→19:20)
[2018-06-12] MEDS: predniSONE 10 MG TAB PO (08:41)
[2018-06-12] MEDS: DOCUSATE SODIUM 100 MG CAP PO ×2 (08:41→20:47)
[2018-06-12] MEDS: QUETIAPINE 25 MG TAB PO ×2 (08:41→20:47)
[2018-06-12] MEDS: ASPIRIN 81 MG TAB PO (08:42)
[2018-06-12] MEDS: SENNA TAB PO ×2 (08:42→20:47)
[2018-06-12] MEDS: AMLODIPINE 10 MG TAB PO (08:42)
[2018-06-12] MEDS: CLOPIDOGREL 75 MG TAB PO (08:42)
[2018-06-12] MEDS: HEPARIN 5,000 UNIT/0.5 ML VIAL SC ×2 (08:45→20:49)
[2018-06-12] MEDS: INSULIN GLARGINE [LANTus] (100 UNITS/ML) SYG SC (20:05)
[2018-06-13] MEDS: ALBUTEROL/IPRATROPIUM (NEB) 3 ML AMP HHN ×3 (00:38→17:06)
[2018-06-13] MEDS: ACCU-CHEK XX (02:00)
[2018-06-13 05:55] LABS: ADD MAN DIFF? NO
[2018-06-13 06:03] LABS: WHITE BLOOD COUNT 8.9 10^3/ul (4.8-10.8)
[2018-06-13 06:03] LABS: BASOPHILS % 0.2 % (0.0-2.0); EOSINOPHILS # 0.2 10^3/ul (0.0-0.5); HEMATOCRIT 32.7 % (37.0-47.0); HEMOGLOBIN 10.7 g/dl (12.0-16.0); LYMPHOCYTES # 2.8 10^3/ul (0.8-2.9); LYMPHOCYTES % 31.8 % (15.0-51.0); MEAN CORPUSCULAR HEMOGLOBIN 28.5 pg (29.0-33.0); MEAN CORPUSCULAR HGB CONC 32.7 g/dl (32.0-37.0); MEAN CORPUSCULAR VOLUME 87.2 fl (82.0-101.0); MEAN PLATELET VOLUME 11.8 fl (7.4-10.4); MONOCYTES % 11.3 % (0.0-11.0); NEUTROPHIL # 4.8 10^3/ul (1.6-7.5); PLATELET COUNT 384 10^3/UL (140-415); RED BLOOD COUNT 3.75 10^6/ul (4.20-5.40); RED CELL DISTRIBUTION WIDTH 13.6 % (11.5-14.5)
[2018-06-13 06:35] LABS: ANION GAP 12 (8-16); BLOOD UREA NITROGEN 59 mg/dl (7-20); CALCIUM 8.8 mg/dl (8.4-10.2); CARBON DIOXIDE 26 mmol/L (21-31); CHLORIDE 110 mmol/L (97-110); CREATININE 1.42 mg/dl (0.44-1.00); GLUCOSE 122 mg/dl (70-220); MAGNESIUM 1.7 mg/dl (1.7-2.5); PHOSPHORUS 4.3 mg/dl (2.5-4.9); POTASSIUM 4.9 mmol/L (3.5-5.1); SODIUM 143 mmol/L (135-144)
[2018-06-13] MEDS: INSULIN ASPART [NOVOLOG] 3 ML PEN SC ×6 (07:51→17:40)
[2018-06-13] MEDS: HEPARIN 5,000 UNIT/0.5 ML VIAL SC (07:52)
[2018-06-13] MEDS: DOCUSATE SODIUM 100 MG CAP PO (07:58)
[2018-06-13] MEDS: ASPIRIN 81 MG TAB PO (07:58)
[2018-06-13] MEDS: predniSONE 10 MG TAB PO (07:59)
[2018-06-13] MEDS: CLOPIDOGREL 75 MG TAB PO (07:59)
[2018-06-13] MEDS: AMLODIPINE 10 MG TAB PO (07:59)
[2018-06-13] MEDS: SENNA TAB PO (08:00)
[2018-06-13] MEDS: QUETIAPINE 25 MG TAB PO (08:00)
[2018-06-13] MEDS: BUDESONIDE (NEB) 0.5MG/2ML AMP HHN (08:20)
[2018-06-13] MEDS ORDERED: INSULIN GLARGINE [LANTus] (100 UNITS/ML) SYG SC (20:00)
== END 2018-06-13 18:23 | disposition home or self-care (01) | DRG 871 ==
LOC: PP2 05-26 16:20 → TEL 05-30 14:40 → PP2 06-01 18:50 → ICU 05-26 17:49 → E/R 15:50 → 6WM 05-27 20:54 → PP2 18:22
PROC: 30233N1 Transfusion of Nonautologous Red Blood Cells into Peripheral Vein, Percutaneous Approach (ICD-10-PCS; principal; 2018-06-06)
PROC: 4A033R1 Measurement of Arterial Saturation, Peripheral, Percutaneous Approach (ICD-10-PCS; 2018-06-06)
DX: A41.51 Sepsis due to Escherichia coli [E. coli] (principal); N17.0 Acute kidney failure with tubular necrosis; J18.9 Pneumonia, unspecified organism; J96.01 Acute respiratory failure with hypoxia; G92 Toxic encephalopathy; N30.00 Acute cystitis without hematuria; Z16.12 Extended spectrum beta lactamase (ESBL) resistance; E11.65 Type 2 diabetes mellitus with hyperglycemia; N18.9 Chronic kidney disease, unspecified; I12.9 Hypertensive chronic kidney disease with stage 1 through stage 4 chronic kidney disease, or unspecified chronic kidney disease; E11.22 Type 2 diabetes mellitus with diabetic chronic kidney disease; D64.9 Anemia, unspecified; R33.9 Retention of urine, unspecified; K80.20 Calculus of gallbladder without cholecystitis without obstruction; F03.90 Unspecified dementia, unspecified severity, without behavioral disturbance, psychotic disturbance, mood disturbance, and anxiety; Z89.512 Acquired absence of left leg below knee; Z78.1 Physical restraint status
CPT/HCPCS: 36415; 36430; 36600; 70450; 70551; 71045; 74176; 76775; 80048; 80053; 80061; 80069; 80202; 81001; 82270; 82550; 82553; 82728; 82803; 82962; 83010; 83036; 83540; 83605; 83615; 83690; 83735; 83880; 84100; 84443; 84484; 85014; 85018; 85025; 85045; 85610; 85730; 86850; 86900; 86901; 86920; 87040; 87081; 87086; 93005; 93306; 94640; 96374; 96375; 97110; 97116; 97161; 97164; 97530; 99285-25